=== PATIENT | female | born 1940 | race Native Hawaiian/Other Pacific Islander ===

== ENCOUNTER 2018-01-26 16:28 | Emergency (ER) | payer BC, MEDICARE ==
[~2018-01-26] VITALS: Ht 165.1 cm; Wt 104.3 kg
--- NOTE | 2018-01-26 16:48 | NUR ---
Dr Heath at the bedside for MSE.
[2018-01-26] MEDS ORDERED: KETOROLAC TROMETHAMINE 30 MG INJ ONE (16:58)
[2018-01-26] MEDS ORDERED: KETOROLAC TROMETHAMINE 30 MG INJ IM ONE (17:00)
[2018-01-26 17:43] VITALS: BP 121/77
--- NOTE | 2018-01-26 17:43 | NUR ---
Patient discharged to home in stable conditon. Written and verbal after care instructions given. Patient verbalizes understanding of instructions.
== END 2018-01-26 17:44 | disposition home or self-care (01) ==
LOC: ER 16:31
DX: S39.012A Strain of muscle, fascia and tendon of lower back, initial encounter (principal); S86.911A Strain of unspecified muscle(s) and tendon(s) at lower leg level, right leg, initial encounter; E03.9 Hypothyroidism, unspecified; F17.200 Nicotine dependence, unspecified, uncomplicated; V49.40XA Driver injured in collision with unspecified motor vehicles in traffic accident, initial encounter; Y93.89 Activity, other specified; Y92.410 Unspecified street and highway as the place of occurrence of the external cause; Y99.8 Other external cause status
CPT/HCPCS: 73590; 93005; A4663; J1885